=== PATIENT | male | born 1990 | race Caucasian/White ===

== ENCOUNTER 2016-08-03 17:14 | Emergency (ER) | payer BC ==
[~2016-08-03] VITALS: Ht 165.1 cm; Wt 81.3 kg
[~2016-08-03 17:14] MED LIST: BUPR75TA20 PO
[2016-08-03 17:20] VITALS: Ht 165.1 cm; Wt 81.3 kg
[2016-08-03] MEDS ORDERED: SODIUM CHLORIDE 0.9% 1000ML 1,000 ML IV STA (17:36)
--- NOTE | 2016-08-03 17:40 | EMERGENCY ROOM VISIT NOTE ---
History First contact with patient: 17:26 Chief Complaint: GI ASSESSMENT Stated Complaint: BLOOD IN STOOL AND VOMIT, HEAD PRESSURE,WEAK,RASH History of Present Illness The patient is a 26 year old male who presents to the Emergency Room with complaints of rectal bleeding. The patient states that the last 3 mornings he noticed bright red blood in his stool. He states the blood was primarily on the outside of the stool. The patient states that he did strain to have a bowel movement but felt as though the stool was fairly regular. He states he has not had any other bleeding that first thing in the morning with a bowel movement. The patient states that he forced himself to vomit and noticed a few specks of blood in the emesis. The patient states that he has been drinking wine over the last several days. He denies any fevers or chills. He denies any pain in his chest or trouble breathing. She denies any abdominal pain or nausea. He denies any diarrhea. He states that he may have had reflux in the past. Review of Systems A 10 system review of systems was completed with positives and pertinent negatives listed in the HPI. Past Medical/Surgical History Medical Problems: (1) Asthma, Unspecified (2) Environmental and seasonal allergies (3) Headache (4) Headache (5) Laceration Social History Smoking Status: Never Smoker Housing Status: lives with family Current/Historical Medications Scheduled Bupropion (Wellbutrin), 150 MG PO BID Allergies Coded Allergies: Cat Dander (Unverified Allergy, Unknown, COUGH, 08/03/16) Dog Dander (Unverified Allergy, Unknown, COUGH, 08/03/16) Dust (Unverified Allergy, Unknown, COUGH, 08/03/16) Molds & Smuts (Unverified Allergy, Unknown, COUGH;ITCHING, 08/03/16) POLLEN (Unverified Allergy, Unknown, COUGH, 08/03/16) Ragweed (Unverified Allergy, Unknown, COUGH, 08/03/16) Uncoded Allergies: SEASONAL, DOGS & CATS (Allergy, Intermediate, ITCHY,WATERY EYES, NASAL CONGESTION, 07/21/13) Physical Exam Vital Signs Date Time Temp Pulse Resp B/P (MAP) Pulse Ox O2 Delivery O2 Flow Rate FiO2 08/03/16 20:01 36.8 77 18 123/95 97 08/03/16 17:20 36.8 96 18 139/98 96 Room Air Physical Exam VITALS: Vitals are noted on the nurse's note and reviewed by myself. Vital signs stable. The patient is afebrile. GENERAL: This is a 26-year-old male, in no acute distress, nondiaphoretic, well- developed well-nourished. SKIN: The skin was without rashes, erythema, edema, or bruising. There is no tenting of the skin. Capillary reflex less than 2 seconds. HEAD: Normocephalic atraumatic. EARS: External auditory canals clear, tympanic membranes pearly hodges without erythema or effusion bilaterally. EYES: Pupils equal round and reactive to light and accommodation. Conjunctivae without injection, sclerae without icterus. Extraocular movements intact. NOSE: Patent, turbinates without inflammation or discharge. No sinus tenderness. MOUTH: Mucous membranes moist. Tonsils are not enlarged. Pharynx without erythema or exudate. Uvula midline. Airway patent. Tongue does not deviate. NECK: Supple without nuchal rigidity. No lymphadenopathy. No thyromegaly. Cervical spine is nontender. No JVD. HEART: Regular rate and rhythm without murmurs gallops or rubs. LUNGS: Clear to auscultation bilaterally without wheezes, rales or rhonchi. No retractions or accessory muscle use. ABDOMEN: Positive bowel sounds x 4. Soft, nontender, without masses or organomegaly. Rosario sign negative. RECTAL: There are nonthrombosed, nonbleeding external hemorrhoids. Digital rectal exam reveals guaiac negative brown stool. MUSCULOSKELETAL: No muscle atrophy, erythema, or edema noted. Full range of motion in all extremities. Strength Normal gait. Strength 5/5 throughout. NEURO: Patient was alert and oriented to person place and time. No focal neurological deficits. Medical Decision & Procedures Laboratory Results 08/03/16 17:42 Red Blood Count 5.05, Mean Corpuscular Volume 86.3, Mean Corpuscular Hemoglobin 31.3, Mean Corpuscular Hemoglobin Concent 36.2, Mean Platelet Volume 10.0, Neutrophils (%) (Auto) 46.7, Lymphocytes (%) (Auto) 36.1, Monocytes (%) (Auto) 15.9, Eosinophils (%) (Auto) 0.9, Basophils (%) (Auto) 0.3, Neutrophils # (Auto ) 3.26, Lymphocytes # (Auto) 2.52, Monocytes # (Auto) 1.11, Eosinophils # (Auto ) 0.06, Basophils # (Auto) 0.02 08/03/16 17:42 Test 08/03/16 17:42 White Blood Count 6.98 K/uL (4.8-10.8) Red Blood Count 5.05 M/uL (4.7-6.1) Hemoglobin 15.8 g/dL (14.0-18.0) Hematocrit 43.6 % (42-52) Mean Corpuscular Volume 86.3 fL (80-100) Mean Corpuscular Hemoglobin 31.3 pg (25-34) Mean Corpuscular Hemoglobin Concent 36.2 g/dl (32-36) Platelet Count 245 K/uL (130-400) Mean Platelet Volume 10.0 fL (7.4-10.4) Neutrophils (%) (Auto) 46.7 % Lymphocytes (%) (Auto) 36.1 % Monocytes (%) (Auto) 15.9 % Eosinophils (%) (Auto) 0.9 % Basophils (%) (Auto) 0.3 % Neutrophils # (Auto) 3.26 K/uL (1.4-6.5) Lymphocytes # (Auto) 2.52 K/uL (1.2-3.4) Monocytes # (Auto) 1.11 K/uL (0.11-0.59) Eosinophils # (Auto) 0.06 K/uL (0-0.5) Basophils # (Auto) 0.02 K/uL (0-0.2) RDW Standard Deviation 40.2 fL (36.4-46.3) RDW Coefficient of Variation 12.6 % (11.5-14.5) Immature Granulocyte % (Auto) 0.1 % Immature Granulocyte # (Auto) 0.01 K/uL (0.00-0.02) Prothrombin Time 10.9 SECONDS (9.0-12.0) Prothromb Time International Ratio 1.0 (0.9-1.1) Activated Partial Thromboplast Time 26.1 SECONDS (21.0-31.0) Partial Thromboplastin Ratio 1.0 Anion Gap 7.0 mmol/L (3-11) Est Creatinine Clear Calc Drug Dose 117.4 ml/min Estimated GFR () 130.7 Estimated GFR (Non- 112.8 BUN/Creatinine Ratio 12.5 (10-20) Calcium Level 8.9 mg/dl (8.5-10.1) Total Bilirubin 0.7 mg/dl (0.2-1) Aspartate Amino Transf (AST/SGOT) 22 U/L (15-37) Alanine Aminotransferase (ALT/SGPT) 38 U/L (12-78) Alkaline Phosphatase 76 U/L (45-117) Total Protein 7.7 gm/dl (6.4-8.2) Albumin 4.5 gm/dl (3.4-5.0) Globulin 3.2 gm/dl (2.5-4.0) Albumin/Globulin Ratio 1.4 (0.9-2) Lipase 110 U/L (73-393) Medications Administered Medications (Trade) Dose Ordered Sig/Hi Route Start Time Stop Time Status Last Admin Dose Admin Sodium Chloride 1,000 ml @ 999 mls/hr Q1H1M STAT IV 08/03/16 17:36 08/03/16 18:36 DC 08/03/16 17:36 999 MLS/HR ED Course The patient was seen and examined. Previous visits were reviewed. Medication list was reviewed. The patient does not have a fever or leukocytosis. Lipase is not elevated. INR is 1.0. The patient presents with several episodes of bright red blood per rectum. It seems to be associated only with bowel movement. He is guaiac-negative at this time. He is hemodynamically stable. He does have external hemorrhoids. This could potentially be a source of the bleeding. He had one episode of a few streaks of blood in his emesis after forcing himself to vomit. The patient was advised to try Zantac or Pepcid. He is advised to decrease alcohol intake. The patient should follow-up with his family doctor and/or gastroenterology for further evaluation and management. He should return to the ER if any worsening symptoms. The case was discussed with Dr. Jaramillo who agrees with the assessment and treatment plan. Medical Decision DIFFERENTIAL DIAGNOSIS: Hepatitis, cholecystitis, cholangitis, biliary colic, pancreatitis, pneumonia, subdiaphragmatic abscess, appendicitis, inguinal hernia , nephrolithiasis, inflammatory bowel disease, mesenteric adenitis, peptic ulcer disease, GERD, gastritis, pancreatitis, myocardial infarction, pericarditis, ruptured aortic aneurysm, appendicitis, gastroenteritis, bowel obstruction, splenic infarct, diverticulitis, mesenteric ischemia, metabolic, peritonitis, among others. Impression Primary Impression: Rectal bleeding Additional Impression: External hemorrhoid Departure Information Dispostion Home / Self-Care Condition GOOD Referrals No Doctor, Assigned (PCP) Abi Francis, DO Patient Instructions Bleeding Rectal, ED Hemorrhoids, My [facility] Additional Instructions Increase fiber and water intake You could try over the counter Miralax to help keep the stool soft over the next 5-7 days; stop if the stool becomes runny You may try pepcid or zantac for reflux; if it is persistent and daily you may try prilosec Return with severe or persistent bleeding, vomiting, pain or fevers Otherwise, follow up with your family doctor and/or GI for further evaluation and management. Problem Qualifiers
[2016-08-03 17:55] LABS: BASO % 0.3 %; BASO ABS # 0.02 K/uL (0-0.2); COMPLETE YES; EOS % 0.9 %; HEMATOCRIT 43.6 % (42-52); IG% 0.1 %; LYMPH % 36.1 %; LYMPH ABS # 2.52 K/uL (1.2-3.4); MEAN CELL VOLUME 86.3 fL (80-100); MEAN CORPUSCULAR HEMOGLOBIN 31.3 pg (25-34); MEAN CORPUSCULAR HGB CONC 36.2 g/dl (32-36); MONO % 15.9 %; NEUT % 46.7 %; PLATELET COUNT 245 K/uL (130-400); RED BLOOD COUNT 5.05 M/uL (4.7-6.1); WHITE BLOOD COUNT 6.98 K/uL (4.8-10.8)
[2016-08-03 18:12] LABS: BUN/CREATININE RATIO 12.5 (10-20); CALCIUM 8.9 mg/dl (8.5-10.1); CREATININE 0.92 mg/dl (0.60-1.40); POTASSIUM 3.5 mmol/L (3.5-5.1)
[2016-08-03 18:15] LABS: ALB/GLOB RATIO 1.4 (0.9-2)
[2016-08-03 18:20] LABS: PROTHROMBIN TIME (PATIENT) 10.9 SECONDS (9.0-12.0)
[2016-08-03 20:01] VITALS: BP 123/95; PULSE 77; TEMP 36.8; O2SAT 97
== END 2016-08-03 19:30 | disposition home or self-care (01) ==
LOC: C.EDB 17:17 → C.EDA 19:30
DX: K62.5 Hemorrhage of anus and rectum (principal); K64.4 Residual hemorrhoidal skin tags; J45.909 Unspecified asthma, uncomplicated; Z79.899 Other long term (current) drug therapy